=== PATIENT | female | born 1985 | race Caucasian/White ===

== ENCOUNTER 2017-04-15 14:05 | Inpatient (IN) | payer OTHER ==
[2017-04-15 14:26] LABS: Hematocrit 40 % (35-47); Hemoglobin 13.6 g/dl (12.0-16.0); Mean Corpuscular HGB Conc 34 g/dl (31-36); Mean Corpuscular Hemoglobin 31 pg (27-31); Mean Corpuscular Volume 91 fL (80-97); Mean Platelet Volume 8 um3 (7.4-10.4); Red Blood Count 4.46 10^6/ul (4.0-5.4); Red Cell Distribution Width 13 % (10.5-15); White Blood Count 17.3 10^3/ul (3.5-10.8)
[2017-04-15] MEDS ORDERED: OBEPIDURAL* 250 ML ONE (16:37)
[2017-04-15] MEDS ORDERED: Phenylephrine IV* 40 MCG/ML 10 ML SYRINGE IV PUSH PRN ×2 (16:56)
[2017-04-15] MEDS ORDERED: Sodium Citrate/Citric Acid* 15 ML UDC PO PRN (16:56)
[2017-04-15] MEDS ORDERED: OBEPIDURAL* 250 ML EPIDURAL SCH (17:00)
[2017-04-15] MEDS ORDERED: Oxytocin in LR* 20 UNITS/1,000 ML BAG IVPB ONE (19:28)
[2017-04-15] MEDS ORDERED: Oxytocin in LR* 20 UNITS/1,000 ML BAG IVPB SCH (20:00)
[2017-04-15] MEDS ORDERED: Glycerin ADULT SUPP PR PRN (23:18)
[2017-04-15] MEDS ORDERED: Dibucaine 1% 28.35 GM TUBE PR PRN (23:18)
[2017-04-15] MEDS ORDERED: Witch Hazel PAD* JAR TOPICAL PRN (23:18)
[2017-04-16] MEDS: Ibuprofen TAB* 600 MG PO PRN ×4 (02:23→20:54)
[2017-04-16 08:30] LABS: Hematocrit 37 % (35-47); Hemoglobin 12.5 g/dl (12.0-16.0); Mean Corpuscular HGB Conc 34 g/dl (31-36); Mean Corpuscular Hemoglobin 30 pg (27-31); Mean Corpuscular Volume 91 fL (80-97); Mean Platelet Volume 8 um3 (7.4-10.4); Red Cell Distribution Width 13 % (10.5-15); White Blood Count 20.7 10^3/ul (3.5-10.8)
[2017-04-16] MEDS ORDERED: Simethicone CHEW TAB* 80 MG PO SCH (08:30)
[2017-04-16] MEDS: Docusate CAP* 100 MG PO SCH ×3 (08:57→19:52)
[2017-04-16] MEDS ORDERED: Ferrous Gluconate TAB* 324 MG TAB PO SCH (09:00)
[2017-04-16] MEDS: Acetaminophen TAB* 325 MG PO PRN ×2 (13:45→19:52)
[2017-04-17] MEDS: Ibuprofen TAB* 600 MG PO PRN ×3 (07:17→20:14)
[2017-04-17 08:36] VITALS: BP 104/70
[2017-04-17] MEDS: Docusate CAP* 100 MG PO SCH (14:08)
== END 2017-04-17 21:42 | disposition home or self-care (01) | DRG 560 ==
LOC: MCHOBOUT 14:05 → MCHOB 14:09
PROVIDERS: ADMIT Midwife; ATTEND Midwife
PROC: 10E0XZZ Delivery of Products of Conception, External Approach (ICD-10-PCS; principal; 2017-04-15)
PROC: 10907ZC Drainage of Amniotic Fluid, Therapeutic from Products of Conception, Via Natural or Artificial Opening (ICD-10-PCS; 2017-04-15)
PROC: 0HQ9XZZ Repair Perineum Skin, External Approach (ICD-10-PCS; 2017-04-15)
DX: O32.6XX0 Maternal care for compound presentation, not applicable or unspecified (principal); O99.344 Other mental disorders complicating childbirth; F41.9 Anxiety disorder, unspecified; O70.0 First degree perineal laceration during delivery; O99.824 Streptococcus B carrier state complicating childbirth; O99.334 Smoking (tobacco) complicating childbirth; F17.210 Nicotine dependence, cigarettes, uncomplicated; Z3A.37 37 weeks gestation of pregnancy; Z37.0 Single live birth; Z91.19 Patient's noncompliance with other medical treatment and regimen
CPT/HCPCS: 36415; 85025; 86850; 86900; 86901; A9270-GY

== ENCOUNTER 2017-09-03 12:36 | Emergency (ER) | payer OTHER ==
[2017-09-03 13:11] VITALS: BP 102/69
--- NOTE | 2017-09-03 13:47 | UC ---
Respiratory Complaint HPI - HPI Summary HPI Summary: "I'm coughing so bad. it hurts in my chest. I can't breathe out of my nose. I ache all over. My ears ache." for three days; worsening over the last twelve hours. No known fever. Patient works at a [employer]. PCP Tyler. Does have 5 mo old at home [ End ] - History of Current Complaint Chief Complaint: UCRespiratory Stated Complaint: COUGH EARS CONGESTION Time Seen by Provider: 09/03/17 13:34 Hx Obtained From: Patient, Family/Hand [employer] Hx Last Menstrual Period: "two weeks ago" Onset/Duration: Gradual Onset Timing: Constant Associated Signs And Symptoms: Positive: URI, Nasal Congestion - Allergies/Home Medications Allergies/Adverse Reactions: Allergies Allergy/AdvReac Type Severity Reaction Status Date / Time Hydrocodone [From Vicodin] AdvReac Vomiting Verified 09/03/17 13:05 Home Medications: Home Medications Diazepam TAB(*) [Valium TAB(*)] 10 mg PO TID 09/03/17 [History Confirmed ] Drospirenone-Ethinyl Estradiol [Kari 3-0.02 mg] 1 tab PO DAILY 09/03/17 [History Confirmed 09/03/17] Multivitamins/Minerals TAB* [Thera M Plus TAB*] 1 tab PO DAILY 09/03/17 [ History Confirmed 09/03/17] Paroxetine CR (NF) [Paxil Cr (NF)] 25 mg PO DAILY 09/03/17 [History Confirmed ] Yzezeqlocnpat-Vh-MB W/ APAP [Vicks Dayquil Severe Cold [id number] mg] 1 - 2 tab PO Q6H PRN 09/03/17 [History Confirmed 09/03/17] oxyCODONE TAB* [Roxycodone TAB 5 mg*] 10 mg PO Q12H PRN 09/03/17 [History Confirmed 09/03/17] PMH/Surg Hx/FS Hx/Imm Hx Previously Healthy: Yes - Surgical History Surgical History: Yes Surgery Procedure, Year, and Place: LEFT EARDRUM RECONSTRUCTION 1999, OVARIAN CYST/OVARY REMOVAL RIGHT SIDE 2009. SALPINGO-OOPHORECTOMY RIGHT SIDE - Family History Known Family History: Positive: Cardiac Disease, Hypertension, Diabetes - Social History Occupation: Employed Full-time Lives: With Family Alcohol Use: None Alcohol Amount: denies at this time. Substance Use Type: None Substance Use Comment - Amount & Last Used: denied history of substance use Smoking Status (MU): Heavy Every Day Tobacco Smoker Type: Cigarettes Amount Used/How Often: 1/2 PPD Length of Time of Smoking/Using Tobacco: Since Age 14 Have You Smoked in the Last Year: Yes Household Exposure Type: Cigarettes Cessation Counseling: Patient Advised to Stop - Immunization History Most Recent Influenza Vaccination: Not the Season Most Recent Tetanus Shot: 12/2016 Most Recent Pneumonia Vaccination: unk Review of Systems Constitutional: Chills, Fatigue Respiratory: Cough Musculoskeletal: Myalgia All Other Systems Reviewed And Are Negative: Yes Physical Exam Triage Information Reviewed: Yes Appearance: Well-Appearing, No Pain Distress, Well-Nourished Vital Signs: Initial Vital Signs Temp 98.4 F 09/03/17 13:03 Pulse 74 09/03/17 13:03 Resp 16 09/03/17 13:03 BP 102/69 09/03/17 13:03 Pulse Ox 100 09/03/17 13:03 Vital Signs Reviewed: Yes Eye Exam: Normal ENT Exam: Normal Dental Exam: Normal Neck exam: Normal Neck: Positive: 1 Respiratory Exam: Normal Cardiovascular Exam: Normal Musculoskeletal Exam: Normal Neurological Exam: Normal Psychological Exam: Normal Skin Exam: Normal UC Diagnostic Evaluation - Laboratory O2 Sat by Pulse Oximetry: 100 Respiratory Course/Dx - Course Course Of Treatment: Concern for flu with the new onset myalgias and will screen at this time to ensure as she does have 5 mo old infant at home . neg flu. If Sx persist or worsen over the next 48 hours then call office when I am here in 48 hours to discuss abx - Differential Dx/Diagnosis Differential Diagnosis/HQI/PQRI: Lower Resp Infection, Sinusitis Provider Diagnoses: URI Discharge - Discharge Plan Condition: Good Disposition: HOME Patient Education Materials: Upper Respiratory Infection (ED)
== END 2017-09-03 14:16 | disposition home or self-care (01) ==
LOC: UCCORT 12:36
DX: J06.9 Acute upper respiratory infection, unspecified (principal); F17.210 Nicotine dependence, cigarettes, uncomplicated
CPT/HCPCS: 87502; 99212; G0463

== ENCOUNTER → 2018-02-23 09:00 | Day surgery (SDC) | payer OTHER ==
[~2018-02-23 09:00] MED LIST: Bacitracin OINTMENT* 0.5% 0.5 oz TUBE ONE; Buffered Lidocaine 0.9% SYRIN* 5 ML/SYR SYRINGE INTRADERM ONE; Bupivacaine 0.25% SDV* 30 ML ONE; Bupivacaine 0.5%* 50 ML VIAL ONE; Dexamethasone IV* 4 MG/ML 1 ML (4 MG) ONE; DiMENhydriNATE IV* 50 MG/ML VIAL IV PUSH PRN; Famotidine IV* 10 MG/ML 2 ML (20 mg) ONE; Ketorolac INJ* 30 MG/ML 1 ML VIAL ONE; Levalbuterol 0.63MG/3ML NEB* UNIT OF USE INH PRN; Lidocain 1% EPI 1:100,000 * 30 ML MDV ONE; Midazolam* 1 MG/ML 5 ML VIAL (5 MG) ONE; Naloxone* 0.4 MG/ML 1 ML VIAL IV PRN; Ondansetron INJ* 2 MG/ML VIAL IV PRN; Ondansetron INJ* 2 MG/ML VIAL ONE; PROCHLORPERAZINE INJ 5 MG/ML 2 ML VIAL IV PRN; Propofol* 10 MG/ML 20 ML BTL IV PUSH ONE; Succinylcholine* 20 MG/ML 10 ML VIAL ONE; ceFAZolin 2 GM PREMIX (*) 2 GM/50 ML BAG IVPB ONE; fentaNYL* 50 MCG/ML 2 ML VIAL (100 MCG VIAL) IV PRN; fentaNYL* 50 MCG/ML 2 ML VIAL (100 MCG VIAL) ONE; oxyCODONE TAB* 5 MG TAB PO PRN
--- NOTE | 2018-02-23 13:23 | OP ---
Operative Report - Blank - Operative Report Date of Operation: 02/23/18 Note: Preop Dx: Umbilical hernia Postop Dx: same Procedure: open primary repair of umbilical hernia Anesthesia: Gen (LMA) Surgeon: Jesusita Asst: ROSA Narayanan Fluids: 1 liter LR EBL: < 25 cc Specimen: none Drains:none Findings: dictated
[2018-02-23 14:18] VITALS: BP 121/76
--- NOTE | 2018-02-27 01:16 | OP ---
CC: [facility]; Dr. Matt Chicas OPERATIVE REPORT: DATE OF OPERATION: 02/23/18 DATE OF : 85 SURGEON: Wallace Mc MD HAMMERSMITH HELPER: Ramona Hankins NP ANESTHESIOLOGIST: Dr. Larson. ANESTHESIA: General anesthesia with LMA. PRE-OP DIAGNOSIS: Umbilical hernia. POST-OP DIAGNOSIS: Umbilical hernia. OPERATIVE PROCEDURE: Open umbilical hernia repair. ESTIMATED BLOOD LOSS: Minimal. FLUIDS: Minimal crystalloid fluid given. SPECIMEN: None. DESCRIPTION OF PROCEDURE: The patient was identified in the preoperative area, marked. Consent was signed. Case was discussed with her. She was brought to the operating room, placed on the operating table in supine position. Preoperative antibiotics were given. Sequential devices were placed on b ilateral lower extremities. General anesthesia was induced. The patient's abdomen was prepped and d raped in standard surgical fashion. A time-out was performed. An infraumbilical incision was made, this was deepened down to the anterior fascia, which was cleared off. The umbilical skin was then sharply dissected off from the umbilical defect. Preperitoneal fa t was then resected and passed off. This was not sent as a specimen. Hernia sac was also ligated an d not sent for pathology. The defect was then isolated and the fascia cleared off around it. It was approximately just under 1 cm. We reapproximated the defect with interrupted #1 Prolene sutures using . The wound was th en irrigated. Hemostasis was achieved and the umbilical skin tacked down with 2-0 Vicryl suture and the incision closed with 3-0 Vicryl sutures followed by a 4-0 Monocryl subcuticular sutures. Steri-St rips and sterile dressings were applied. [id number]/[facility] #: [id number]
== END | disposition home or self-care (01) ==
LOC: OR 09:00
PROVIDERS: ATTEND Surgery
DX: K42.9 Umbilical hernia without obstruction or gangrene (principal); F17.210 Nicotine dependence, cigarettes, uncomplicated; F41.9 Anxiety disorder, unspecified; F10.10 Alcohol abuse, uncomplicated; F19.10 Other psychoactive substance abuse, uncomplicated
CPT/HCPCS: 81025; A9270-GY; J0330; J0690; J1100; J1885; J2250; J2405; J2704; J3010